=== PATIENT | female | born 1960 | race Caucasian/White ===

== ENCOUNTER → 2018-11-11 | Outpatient (CLI) | payer BC ==
--- NOTE | 2018-11-11 18:51 | CT ---
EXAMINATION TYPE: CT wrist RT wo con, CT wrist LT wo con DATE OF EXAM: 11/11/2018 COMPARISON: None. HISTORY: Right wrist pain, decreased range of motion. Dorsal radial ulnar ligament tear. TFC ligament tear. Probable subluxed distal ulna. Probable forearm rotation right wrist all per order. CT DLP: 84.9 (scanned together) mGycm Automated exposure control for dose reduction was used. FINDINGS: No acute fracture or dislocation is evident bilaterally. Carpal rows are preserved bilaterally. There is moderate narrowing at triscaphe joint bilaterally. Single subchondral cyst suspected in the ulnar distal aspect of the trapezium right wrist coronal image 12. No significant spurring is present bila terally. Lunate capitate relationship is preserved bilaterally. Seen best on axial images there is abnormal radial ulnar joint with marked widening along the palmar surface on the right and bone on bone articulation along dorsal surface. Similar finding is seen in t he left wrist but to lesser degree. There is similar dorsal positioning of the distal ulna relative t o the distal radius on sagittal images in both breasts. Carpal tunnel is maintained bilaterally. No s uspicious palmar surface bowing is seen. Muscle bulk in the wrists is symmetric and felt within normal limits. IMPRESSION: Abnormal radial ulnar joint appears bilaterally and is more prominent in the right wrist versus left wrist.
== END | disposition home or self-care (01) ==
LOC: RADCTMAIN 16:11
PROVIDERS: ATTEND Orthopaedic Surgery Hand Surgery
DX: M25.531 Pain in right wrist (principal); M25.532 Pain in left wrist; M24.231 Disorder of ligament, right wrist